=== PATIENT | female | born 1960 | race Caucasian/White ===

== ENCOUNTER → 2017-05-19 | Outpatient (CLI) | payer OTHER ==
[2017-05-19 17:56] LABS: BASOPHILS % (AUTO) 0.1 % (0.2-1.0); BILIRUBIN,URINE NEGATIVE (NEGATIVE); BLOOD/HEMOGLOBIN,URINE NEGATIVE (NEGATIVE); EOSINOPHILS # (AUTO) 0.1 x10^3/uL (0.0-0.2); EOSINOPHILS % (AUTO) 1.4 % (0.9-2.9); GLUCOSE, URINE NEGATIVE (NEGATIVE); HEMATOCRIT 37.5 % (36.0-47.0); HEMOGLOBIN 13.1 g/dL (12.0-16.0); KETONES,URINE NEGATIVE (NEGATIVE); LEUKOCYTE ESTERASE ,URINE 1+ (NEGATIVE); LYMPHOCYTES # (AUTO) 2.6 X10^3/uL (1.3-2.9); LYMPHOCYTES % (AUTO) 25.9 % (21.0-51.0); MEAN CORPUSCULAR HEMOGLOBIN 33.1 pg (27.0-34.0); MEAN CORPUSCULAR HGB CONC 34.8 g/dL (33.0-35.0); MEAN CORPUSCULAR VOLUME 95.1 fL (80.0-100.0); MEAN PLATELET VOLUME 7.4 fL (7.4-11.0); MONOCYTES # (AUTO) 0.8 x10^3/uL (0.3-0.8); MONOCYTES % (AUTO) 8.4 % (0.0-13.0); NEUTROPHILS # (AUTO) 6.5 x10^3/uL (2.2-4.8); NEUTROPHILS % (AUTO) 64.2 % (42.0-75.0); NITRITES,URINE NEGATIVE (NEGATIVE); PH,URINE 6.5 (5.0 - 8.0); PLATELET COUNT 339 X10^3/uL (150.0-450.0); PROTEIN,URINE 1+ (NEGATIVE); RED BLOOD COUNT 3.95 X10^6/uL (3.5-5.4); RED CELL DISTRIBUTION WIDTH 14.1 % (11.6-16.5); UROBILINOGEN,URINE NORMAL (NORMAL); WHITE BLOOD COUNT 10.1 X10^3/uL (3.6-10.0)
[2017-05-19 18:08] LABS: ALANINE AMINOTRANSFERASE 59 Units/L (12-78); ALBUMIN 3.2 g/dL (3.4-5.0); ALKALINE PHOSPHATASE 147 Units/L (46-116); ASPARTATE AMINO TRANSFERASE 35 Units/L (15-37); BLOOD UREA NITROGEN 7 mg/dL (7-18); CALCIUM 8.6 mg/dL (8.5-10.1); CHLORIDE 103 mmol/L (98-107); COR CA(FOR HYPOALB) 9.2 mg/dL (8.5-10.1); CREATININE 0.83 mg/dL (0.55-1.02); GLUCOSE 95 mg/dL (65-99); SODIUM 140 mmol/L (136-145); TOTAL PROTEIN 7.1 g/dL (6.4-8.2); eGFR BLACK RACES > 60 (>60); eGFR NON BLACK RACES > 60 (>60)
[2017-05-19 18:10] LABS: APPEARANCE,URINE HAZY (CLEAR); BACTERIA,URINE TRACE /HPF (NEGATIVE); COLOR,URINE YELLOW (YELLOW); RBC,URINE 0-2 /HPF (NEGATIVE); SQUAMOUS EPITHELIAL CELL,UR FEW /HPF (NEGATIVE)
--- NOTE | 2017-05-19 18:21 | RAD ---
HISTORY: Preop for left clavicular fracture Study: PA and lateral chest Comparison: None Findings: The trachea is midline. The cardiac silhouette is unremarkable. The lungs are clear without focal infiltrate or effusion. The bony thorax shows an overlapping left mid clavicular fracture. IMPRESSION: 1. No acute cardiopulmonary disease. 2. Left clavicular fracture Reported By:
== END ==
LOC: LAB 17:27
PROVIDERS: ATTEND Specialist
DX: Z01.818 Encounter for other preprocedural examination (principal); Z79.899 Other long term (current) drug therapy; Z11.8 Encounter for screening for other infectious and parasitic diseases; Z01.810 Encounter for preprocedural cardiovascular examination; Z01.811 Encounter for preprocedural respiratory examination; S42.022S Displaced fracture of shaft of left clavicle, sequela; X58.XXXS Exposure to other specified factors, sequela
CPT/HCPCS: 36415; 71020; 80053; 81001; 85025; 87641; 93005; 93010

== ENCOUNTER 2017-05-20 11:18 | Day surgery (SDC) | payer OTHER ==
[~2017-05-20 11:18] MED LIST: MARCAINE 0.25% WITH EPI IJ ONE
[2017-05-20] MEDS ORDERED: ANCEF VIAL 1 GM ONE (11:22)
[2017-05-20] MEDS ORDERED: D5 LR 1000 ML 1,000 ML IV ONE (11:22)
[2017-05-20] MEDS ORDERED: NS 50 ML IV + SPIKE MINIBAG* 50 ML IV ONE (11:22)
[2017-05-20] MEDS ORDERED: FENTANYL INJ 250 mcg ONE (13:50)
[2017-05-20] MEDS ORDERED: XYLOCAINE 2 % (PLAIN) ONE (14:14)
[2017-05-20] MEDS ORDERED: ULTANE GAS IN ONE (14:14)
[2017-05-20] MEDS ORDERED: DIPRIVAN VIAL ONE (14:14)
[2017-05-20] MEDS ORDERED: SUPRANE IN ONE (14:14)
[2017-05-20] MEDS ORDERED: ZOFRAN INJ 4 MG VIAL ONE (14:14)
[2017-05-20] MEDS ORDERED: DYLOJECT INJ ONE (14:14)
[2017-05-20] MEDS ORDERED: NORCURON INJ 10 MG VIAL ONE (14:14)
[2017-05-20] MEDS ORDERED: QUELICIN (OR ANECTINE) ONE (14:14)
[2017-05-20] MEDS ORDERED: VERSED ONE (14:14)
[2017-05-20] MEDS ORDERED: ROBINUL ONE (14:14)
[2017-05-20] MEDS ORDERED: NS IRRIGATION 1000 ML 1,000 ML with BACITRACIN VIAL 50,000 UNT IR ONE ×2 (14:41)
[2017-05-20] MEDS ORDERED: BACITRACIN VIAL ONE (14:48)
[2017-05-20] MEDS ORDERED: PHENERGAN INJ 25 MG IVP PRN (16:02)
[2017-05-20] MEDS ORDERED: BENADRYL INJ 50 MG VIAL IVP PRN (16:02)
[2017-05-20] MEDS ORDERED: REGLAN INJ 10 MG VIAL IVP PRN (16:02)
[2017-05-20] MEDS ORDERED: ZOFRAN INJ 4 MG VIAL IVP PRN (16:02)
[2017-05-20] MEDS: DILAUDID INJ IVP PRN ×3 (16:04→16:15)
[2017-05-20] MEDS ORDERED: DILAUDID INJ IVP ONE (16:19)
[2017-05-20 17:23] VITALS: BP 106/58
== END 2017-05-20 17:23 | disposition home or self-care (01) | DRG 517 ==
LOC: SURG1 11:18
PROVIDERS: ATTEND Specialist
PROC: 0PSB04Z Reposition Left Clavicle with Internal Fixation Device, Open Approach (ICD-10-PCS; principal; 2017-05-20 12:00)
DX: S42.022S Displaced fracture of shaft of left clavicle, sequela (principal); X58.XXXS Exposure to other specified factors, sequela
CPT/HCPCS: 93005; 93010; A4216; A4222; S0020; J0330; J0690; J1170; J2001; J2250; J2405; J3010; J3490; J7120